=== PATIENT | female | born 1970 | race Caucasian/White ===

== ENCOUNTER → 2018-03-29 | Outpatient (CLI) | payer MEDICAID ==
[2018-03-29 13:43] LABS: INTERNATIONAL RATION (INR) 0.99; PROTHROMBIN TIME 13.6 SEC (11.4-15.4)
== END ==
LOC: LAB 13:08
PROVIDERS: ATTEND Internal Medicine Pulmonary Disease
DX: Z51.81 Encounter for therapeutic drug level monitoring (principal); Z79.01 Long term (current) use of anticoagulants
CPT/HCPCS: 36415; 85610

== ENCOUNTER 2018-04-18 14:30 | Emergency (ER) | payer OTHER, MEDICAID ==
[2018-04-18] MEDS ORDERED: ASPIRIN 81 MG TABLET, CHEWABLE PO ONE (14:59)
--- NOTE | 2018-04-18 15:31 | RADIOLOGY REPORT (SQ) ---
EXAM DESCRIPTION: CHEST SINGLE VIEW COMPLETED DATE/TIME: 04/18/2018 3:17 pm REASON FOR STUDY: cp COMPARISON: AP chest 07/22/2012 EXAM PARAMETERS: NUMBER OF VIEWS: One view. TECHNIQUE: Single frontal radiographic view of the chest acquired. RADIATION DOSE: NA LIMITATIONS: None. FINDINGS: LUNGS AND PLEURA: No acute infiltrates. No pleural effusions. No pneumothorax. MEDIASTINUM AND HILAR STRUCTURES: No masses. Contour normal. HEART AND VASCULAR STRUCTURES: Heart normal in size. Normal vasculature. BONES: No acute findings. HARDWARE: None in the chest. OTHER: Bilateral breast implants IMPRESSION: NO ACUTE RADIOGRAPHIC FINDING IN THE CHEST. TECHNICAL DOCUMENTATION: JOB ID: [id number] [employer]- All Rights Reserved Reading location - IP/workstation name: [email or web address]
--- NOTE | 2018-04-18 16:07 | ER Document Report ---
ED Cardiac - General Chief Complaint: Chest Wall Pain Stated Complaint: CHEST PAIN Time Seen by Provider: 04/18/18 15:14 Primary Care Provider: PAUL BENÍTEZ II, MD [NO LOCAL MD] - Follow up in 3-5 days TRAVEL OUTSIDE OF THE [place] IN LAST 30 DAYS: No - HPI Patient complains to provider of: Other - Right side rib pain, this is a woman with a history of factor V Leiden in the past who has been on anticoagulation for pulmonary emboli the presents from retirement for evaluation of pain along the right chest which she says began suddenly and feels similar to previous pulmonary emboli. She is currently taking warfarin and has been getting it checked intermittently. This feels very similar to that because she has been short of breath which makes it difficult for her to walk around the same frequency as she has previously. She is not take anything to try and help with it. - Related Data Allergies/Adverse Reactions: promethazine HCl [From Phenergan] Allergy (Verified 03/26/18 11:03) Past Medical History - General Information source: Patient - Social History Smoking Status: Unknown if Ever Smoked Chew tobacco use (# tins/day): No Frequency of alcohol use: None Drug Abuse: None Family History: Reviewed & Not Pertinent Patient has suicidal ideation: No Patient has homicidal ideation: No - Past Medical History Cardiac Medical History: Reports: Hx Hypertension - states took meds this am. Renal/ Medical History: Reports: Hx Kidney Stones. Denies: Hx Peritoneal Dialysis Past Surgical History: Reports: Hx Appendectomy, Hx Tonsillectomy - Immunizations Hx Diphtheria, Pertussis, Tetanus Vaccination: Yes - unknown Review of Systems - Review of Systems -: Yes All other systems reviewed and negative Physical Exam - Vital signs Vitals: Pulse Ox 100 04/18/18 14:59 - General General appearance: Appears well, Alert - HEENT Head: Normocephalic, Atraumatic Eyes: Normal Pupils: PERRL - Respiratory Respiratory status: No respiratory distress Chest status: Nontender Breath sounds: Normal Chest palpation: Normal - Cardiovascular Rhythm: Regular Heart sounds: Normal auscultation Murmur: No - Abdominal Inspection: Normal Distension: No distension Bowel sounds: Normal Tenderness: Nontender Organomegaly: No organomegaly - Back Back: Normal, Nontender - Extremities General upper extremity: Normal inspection, Nontender, Normal color, Normal ROM, Normal temperature General lower extremity: Normal inspection, Nontender, Normal color, Normal ROM, Normal temperature, Normal weight bearing. No: Flakita's sign - Neurological Neuro grossly intact: Yes Cognition: Normal Orientation: AAOx4 August Coma Scale Eye Opening: Spontaneous August Coma Scale Verbal: Oriented August Coma Scale Motor: Obeys Commands [place] Coma Scale Total: 15 Speech: Normal Motor strength normal: LUE, RUE, LLE, RLE Sensory: Normal - Psychological Associated symptoms: Normal affect, Normal mood Course - Re-evaluation Re-evalutation: This woman with a history of thromboembolic events in the past who presents for concern of pain in her right chest which feels like thromboembolic events in the past. We will obtain CTA of the chest for concern of PE. We will administer Tylenol and Motrin for pain. We will obtain cardiac markers as well plan for monitoring. Patient with a negative CT of the chest, negative troponins, unremarkable labs. I am unclear what may be the cause of her right-sided chest pain, is likely related to a musculoskeletal issue chest wall pain. She will undergo discharge with return precautions and discharged in the care of the police she is going back to retirement. - Vital Signs Vital signs: Temp Pulse Resp BP Pulse Ox 64 12 109/66 95 04/18/18 21:00 04/18/18 21:01 04/18/18 21:00 04/18/18 21:01 - Laboratory Result Diagrams: 04/18/18 16:11 04/18/18 16:11 Laboratory results interpreted by me: 04/18/18 16:11 Carbon Dioxide 32 H Creatine Kinase 22 L Discharge - Discharge Clinical Impression: Rib pain on right side Chest pain Qualifiers: Chest pain type: unspecified Qualified Code(s): R07.9 - Chest pain, unspecified Condition: Good Disposition: HOME, SELF-CARE Instructions: Anti-Inflammatory Medication ([facility]), Chest Wall Pain ([facility]) Additional Instructions: You were seen today in the emergency department for the pain in the right side of your chest. You had an evaluation including a CAT scan, blood work, and EKG. Nothing was identified as the cause of the pain in your chest. No obvious blood clot was identified. Use Motrin and Tylenol to help with the pain in your chest. You can take 1 g of Motrin every 6 hours as needed. You can take 400 mg of ibuprofen every 6 hours as needed. Return in case of worsening shortness of breath, lightheadedness, or chest pain. Referrals: PAUL BENÍTEZ II, MD [NO LOCAL MD] - Follow up in 3-5 days
[2018-04-18 16:43] LABS: ABSOLUTE EOSINOPHILS # (AUTO) 0.1 10^3/uL (0.0-0.6); ABSOLUTE LYMPHOCYTES (AUTO) 1.9 10^3/uL (0.5-4.7); ABSOLUTE MONOCYTES (AUTO) 0.4 10^3/uL (0.1-1.4); ABSOLUTE NEUT (AUTO) 2.9 10^3/uL (1.7-8.2); BASOPHILS % (AUTO) 0.8 % (0-2); EOSINOPHILS % (AUTO) 1.9 % (0-6); HEMOGLOBIN 14.1 g/dL (12.0-15.5); LYMPHOCYTES % (AUTO) 35.9 % (13-45); MEAN CORPUSCULAR HEMOGLOBIN 28.7 pg (27.0-33.4); MEAN CORPUSCULAR HGB CONC 34.3 g/dL (32.0-36.0); MEAN CORPUSCULAR VOLUME 84 fl (80-97); MONOCYTES % (AUTO) 7.2 % (3-13); PLATELET COUNT 227 10^3/uL (150-450); RED BLOOD COUNT 4.91 10^6/uL (3.72-5.28); RED CELL DISTRIBUTION WIDTH 13.8 % (11.5-14.0); SEGMENTED NEUTROPHILS % (AUTO) 54.2 % (42-78); TOTAL CELLS COUNTED % (AUTO) 100 %; WHITE BLOOD COUNT 5.4 10^3/uL (4.0-10.5)
[2018-04-18 17:16] LABS: ALANINE AMINOTRANSFERASE 24 U/L (9-52); ALBUMIN 4.6 g/dL (3.5-5.0); ALKALINE PHOSPHATASE 77 U/L (38-126); ANION GAP 7 (5-19); ASPARTATE AMINO TRANSFERASE 20 U/L (14-36); BILIRUBIN,DIRECT 0.2 mg/dL (0.0-0.4); BILIRUBIN,TOTAL 0.3 mg/dL (0.2-1.3); BLOOD UREA NITROGEN 17 mg/dL (7-20); CALCIUM 9.7 mg/dL (8.4-10.2); CARBON DIOXIDE 32 mmol/L (22-30); CHLORIDE 101 mmol/L (98-107); CREATINE KINASE 22 U/L (30-135); GLUCOSE 96 mg/dL (75-110); POTASSIUM 4.7 mmol/L (3.6-5.0); SODIUM 139.5 mmol/L (137-145); TOTAL PROTEIN 7.4 g/dL (6.3-8.2)
[2018-04-18 17:24] LABS: CREATINE KINASE MB 0.31 ng/mL (<4.55)
[2018-04-18 17:26] LABS: TROPONIN I < 0.012 ng/mL
--- NOTE | 2018-04-18 18:29 | RADIOLOGY REPORT (SQ) ---
EXAM DESCRIPTION: CTA CHEST COMPLETED DATE/TIME: 04/18/2018 6:03 pm REASON FOR STUDY: high likelihood PE RLL COMPARISON: None. TECHNIQUE: CT scan of the chest performed using helical scanning technique with dynamic intravenous contrast injection. Images reviewed with lung, soft tissue and bone windows. Reconstructed coronal and sagittal MPR images reviewed. Additional 3 dimensional post-processing performed to develop Maximal Intensity Projection images (DC P). All images stored on PACS. All CT scanners at this facility use dose modulation, iterative reconstruction, and/or weight based d osing when appropriate to reduce radiation dose to as low as reasonably achievable (ALARA). [facility]: Dose Right [facility]: CareDose [facility]: Dose Right [facility]: Teradose 4D [facility]: Silverpop CONTRAST TYPE AND DOSE: contrast/concentration: Isovue 350.00 mg/ml; Total Contrast Delivered: 66.0 ml; Total Saline Delivered: 106.0 ml Contrast bolus optimized for the pulmonary arteries. Not diagnostic for the aorta. RENAL FUNCTION: BUN 17 creatinine 0.65 RADIATION DOSE: CT Rad equipment meets quality standard of care and radiation dose reduction techniq ues were employed. CTDIvol: 14.3 - 33.1 mGy. DLP: 527 mGy-cm. . LIMITATIONS: None. FINDINGS: LUNGS AND PLEURA: No masses, infiltrates, or pneumothorax. No pleural effusions or pleura l calcifications. AORTA AND GREAT VESSELS: No aneurysm. Contrast bolus not optimized for the aorta. HEART: No pericardial effusion. No significant coronary artery calcifications. PULMONARY ARTERIES: No emboli visualized in the main pulmonary arteries or the segmental branches. HILAR AND MEDIASTINAL STRUCTURES: No identified masses or abnormal nodes. HARDWARE: None in the chest. UPPER ABDOMEN: A few scattered small hepatic cysts are present. THYROID AND OTHER SOFT TISSUES: No masses. No adenopathy. BONES: No acute or significant finding. 3D MIPS: Confirm above findings. OTHER: There are calcifications in the wall of the right internal jugular vein. IMPRESSION: 1. There is no evidence of pulmonary emboli. 2. There are calcifications in the wall of the right internal jugular vein. Is there history of thr ombosis? COMMENT: Quality ID # [id number]: Final reports with documentation of one or more dose reduction techniques (e.g., Automated exposure control, adjustment of the mA and/or kV according to patient size, use of iterative reconstruction technique) TECHNICAL DOCUMENTATION: JOB ID: [id number] [employer]- All Rights Reserved Reading location - IP/workstation name: [email or web address]
[2018-04-18] MEDS ORDERED: IBUPROFEN 600 MG TABLET PO ONE (19:10)
[2018-04-18 21:19] VITALS: BP 109/66
--- NOTE | 2018-04-18 22:57 | EKG REPORT ---
SEVERITY:- ABNORMAL ECG - SINUS RHYTHM LEFT ATRIAL ABNORMALITY : Confirmed by: Barbara Knight MD 18-Apr-2018 22:56:12
== END 2018-04-18 21:30 | disposition home or self-care (01) ==
LOC: EEVIPCON 14:30 → ER 14:30
DX: R07.81 Pleurodynia (principal); R07.9 Chest pain, unspecified; I10 Essential (primary) hypertension; Z87.442 Personal history of urinary calculi
CPT/HCPCS: 36415; 71045; 71275; 80053; 82550; 82553; 84484; 85025; 93005; 93010; 99284

== ENCOUNTER 2019-09-04 13:49 | Emergency (ER) | payer MEDICAID ==
[2019-09-04] MEDS ORDERED: LORAZEPAM INJ 2 MG/1 ML VIAL IV ONE (14:03)
--- NOTE | 2019-09-04 14:07 | ER Document Report ---
ED General <HENRIQUE BULLOCK - Last Filed: 09/09/19 21:49> - General Mode of Arrival: Medic Information source: Patient TRAVEL OUTSIDE OF THE [place] IN LAST 30 DAYS: No <FAVIAN BALDWIN - Last Filed: 09/10/19 08:35> - General Stated Complaint: INVOLUNTARY BODY MOVEMENTS Notes: 48-year-old woman presents to the emergency department with diffuse and irregular movement of her arms and legs which she relates to using IV methamphetamine yesterday. She then use heroin and ice. States that the irregular movement began after using the drugs. Patient is alert and talkative and has no speech difficulty. She was released from half-way proximately 1 week ago. She complains of feeling hot and unable to get comfortable. (FAVIAN BALDWIN) - Related Data Allergies/Adverse Reactions: promethazine HCl [From Phenergan] Allergy (Verified 03/26/18 11:03) Past Medical History - Social History Smoking Status: Unknown if Ever Smoked Family History: Reviewed & Not Pertinent - Past Medical History Cardiac Medical History: Reports: Hx Hypertension - states took meds this am. Renal/ Medical History: Reports: Hx Kidney Stones. Denies: Hx Peritoneal Dialysis Past Surgical History: Reports: Hx Appendectomy, Hx Tonsillectomy - Immunizations Hx Diphtheria, Pertussis, Tetanus Vaccination: Yes - unknown <FAVIAN BALDWIN - Last Filed: 09/10/19 08:35> Review of Systems <FAVIAN BALDWIN - Last Filed: 09/10/19 08:35> - Review of Systems Notes: Constitutional: Negative for fever. HENT: Negative for sore throat. Eyes: Negative for visual changes. Cardiovascular: Negative for chest pain. Respiratory: Negative for shortness of breath. Gastrointestinal: Negative for abdominal pain, vomiting or diarrhea. Genitourinary: Negative for dysuria. Musculoskeletal: Negative for back pain. Skin: Negative for rash. Neurological: Discoordinated movements upper and lower extremity 10 point ROS negative except as marked above and in HPI. (FAVIAN BALDWIN) Physical Exam <FAVIAN BALDWIN - Last Filed: 09/10/19 08:35> - Vital signs Vitals: Resp Pulse Ox 24 H 95 09/04/19 13:55 09/04/19 13:55 - Notes Notes: PHYSICAL EXAMINATION: Physical Exam: General: Well-nourished well-developed 78-year-old woman in moderate distress secondary to flinging the arms and legs HEENT: NC/AT, pupils equal round and reactive to light, MM moist,nares clear, oropharynx clear, airway patent Neck: supple, no adenopathy, no masses. Good range of motion Lungs: clear, no wheezing, no rales no rhonchi CVS: Regular rate and rhythm no murmur gallop or rub Abdomen: Soft, active, nontender, no masses, no hepatosplenomegaly Ext: No edema, clubbing or cyanosis. Neuro: Alert and responsive, moving all 4 extremities on command, cranial nerves intact, no focal findings Skin: + Needle tracks, neck and arm (FAVIAN BALDWIN) Course - Laboratory Result Diagrams: 09/04/19 14:02 09/04/19 14:02 <HENRIQUE BULLOCK - Last Filed: 09/09/19 21:49> - Laboratory Result Diagrams: 09/04/19 14:02 09/04/19 14:02 - EKG Interpretation by Me Rate: Tachycardia - Sinus tachycardia with a rate of 105, probable left atrial abnormality, no acute ST or T wave abnormalities seen. Borderline prolonged QT interval noted. Normal axis. <FAVIAN BALDWIN - Last Filed: 09/10/19 08:35> - Re-evaluation Re-evalutation: 09/04/19 19:50 Care of this patient was turned over to me during the course of my stay in the emergency department. Her significant abnormal movements continued. This did appear to be a tardive dyskinesia. IV Benadryl ordered. Psychosocial consult was performed, the patient wishes to follow up at [facility]. Will attempt to control her tardive dyskinesia with the Benadryl. She is stable, we will continue to monitor. 09/05/19 02:33 Patient had some improvement of tardive dyskinesia with Benadryl, had further improvement with some Cogentin. She still does have some residual movements, but she has been resting comfortably and is stable. She feels comfortable being discharged. She will follow-up as an outpatient for detox. (HENRIQUE BULLOCK) - Vital Signs Vital signs: Temp Pulse Resp BP Pulse Ox 99.1 F 21 H 100/64 97 09/05/19 10:08 09/05/19 10:08 09/05/19 10:08 09/05/19 10:08 Binge using of IV methamphetamine, IV heroin and ICE presents with bizarre movements and shaking. Patient was given the Lorazepam 2 mg. She has been resting quietly for approximately 45 minutes. Potassium was noted to be 3.0, patient is given a IV rider and oral potassium is ordered. (FAVIAN BALDWIN) - Laboratory Laboratory results interpreted by me: 09/04/19 09/04/19 09/04/19 14:02 14:02 14:02 WBC 13.1 H Hgb 11.4 L Hct 32.9 L Lymph % (Auto) 9.2 L Absolute Neuts (auto) 10.5 H Seg Neutrophils % 79.7 H Sodium 136.3 L Potassium 3.0 L* Chloride 91 L BUN 35 H Creatinine 1.41 H Est GFR ( Amer) 48 L Est GFR (MDRD) Non-Af 39 L AST 88 H Creatine Kinase 2133 H CK-MB (CK-2) Salicylates Acetaminophen 09/04/19 09/04/19 14:02 14:02 WBC Hgb Hct Lymph % (Auto) Absolute Neuts (auto) Seg Neutrophils % Sodium Potassium Chloride BUN Creatinine Est GFR ( Amer) Est GFR (MDRD) Non-Af AST Creatine Kinase CK-MB (CK-2) 20.50 H Salicylates < 1.0 L Acetaminophen < 10 L I have reviewed laboratory data and used this information for the treatment decisions regarding the patient. (FAVIAN BALDWIN) Discharge <HENRIQUE BULLOCK - Last Filed: 09/09/19 21:49> <FAVIAN BALDWIN - Last Filed: 09/10/19 08:35> - Discharge Clinical Impression: Polysubstance abuse, Hypokalemia, Abnormal movements, Tardive dyskinesia Condition: Stable Disposition: HOME, SELF-CARE Instructions: Ampetamine Abuse ([facility]), Hypokalemia ([facility]), Narcotic Abuse ([facility]) Additional Instructions: Seek outpatient help for substance abuse issues as discussed. Follow-up with your primary care provider on Saturday. You may require further intervention for the involuntary movements you are suffering at this time. Return to the emergency department with worsening or concerning symptoms of any sort.
[2019-09-04 14:17] LABS: ABSOLUTE BASOPHILS # (AUTO) 0.1 10^3/uL (0.0-0.2); ABSOLUTE LYMPHOCYTES (AUTO) 1.2 10^3/uL (0.5-4.7); ABSOLUTE MONOCYTES (AUTO) 1.3 10^3/uL (0.1-1.4); ABSOLUTE NEUT (AUTO) 10.5 10^3/uL (1.7-8.2); HEMATOCRIT 32.9 % (36.0-47.0); HEMOGLOBIN 11.4 g/dL (12.0-15.5); LYMPHOCYTES % (AUTO) 9.2 % (13-45); MEAN CORPUSCULAR HEMOGLOBIN 28.3 pg (27.0-33.4); MEAN CORPUSCULAR HGB CONC 34.6 g/dL (32.0-36.0); MEAN CORPUSCULAR VOLUME 82 fl (80-97); MONOCYTES % (AUTO) 10.1 % (3-13); PLATELET COUNT 321 10^3/uL (150-450); RED BLOOD COUNT 4.02 10^6/uL (3.72-5.28); RED CELL DISTRIBUTION WIDTH 13.9 % (11.5-14.0); SEGMENTED NEUTROPHILS % (AUTO) 79.7 % (42-78); TOTAL CELLS COUNTED % (AUTO) 100 %; WHITE BLOOD COUNT 13.1 10^3/uL (4.0-10.5)
[2019-09-04 14:42] LABS: ALBUMIN 4.5 g/dL (3.5-5.0); ALKALINE PHOSPHATASE 110 U/L (38-126); ANION GAP 17 (5-19); ASPARTATE AMINO TRANSFERASE 88 U/L (14-36); BILIRUBIN,DIRECT 0.3 mg/dL (0.0-0.4); BILIRUBIN,TOTAL 1.2 mg/dL (0.2-1.3); BLOOD UREA NITROGEN 35 mg/dL (7-20); CARBON DIOXIDE 28 mmol/L (22-30); CHLORIDE 91 mmol/L (98-107); GLUCOSE 82 mg/dL (75-110); TOTAL PROTEIN 7.8 g/dL (6.3-8.2)
[2019-09-04 14:54] LABS: ALCOHOL < 10 mg/dL (NONE DETECTED)
[2019-09-04] MEDS ORDERED: POTASSIUM CHLORIDE 20 MEQ PACKET PO ONE (16:02)
[2019-09-04] MEDS ORDERED: POTASSI CL 20 MEQ/50 ML RIDER 20 MEQ/50 ML RTUPB IV ONE (16:02)
[2019-09-04] MEDS ORDERED: POTASSIUM CHLORIDE 10 MEQ TABLET.ER PO ONE (16:02)
[2019-09-04 16:22] LABS: URINE BARBITURATES SCREEN NEGATIVE; URINE COCAINE SCREEN NEGATIVE; URINE MARIJUANA (THC) SCREEN NEGATIVE; URINE METHADONE SCREEN NEGATIVE; URINE PHENCYCLIDINE SCREEN NEGATIVE
[2019-09-04 16:23] LABS: URINE BENZODIAZEPINES SCREEN UNCONFIRMED POSITIVE
[2019-09-04 17:23] LABS: CREATINE KINASE MB 20.5 ng/mL (<4.55); TROPONIN I 0.022 ng/mL
[2019-09-04] MEDS: NORMAL SALINE 1000 ML 1,000 ML IV PRN ×2 (17:55→19:02)
[2019-09-04 18:02] LABS: ACETAMINOPHEN < 10 ug/mL (10-30); SALICYLATE < 1.0 mg/dL (2.0-20.0)
--- NOTE | 2019-09-04 18:40 | PSYCHOLOGICAL NOTE ---
Psych Note - Psych Note Date seen by psych provider: 09/04/19 Time seen by psych provider: 18:30 Psych Note: Reason for consult binder sorter attempted to engage patient in evaluation however patient is currently being medicated with Ativan. Patient is unable to wake up. Behavior health team will re-attempt at a later time. Detox referral information including local providers, detox facilities and mobile crisis contact information will be put in patient's chart in case patient is discharged prior to behavioral health team returning tomorrow morning.
--- NOTE | 2019-09-04 19:04 | EKG REPORT ---
SEVERITY:- ABNORMAL ECG - SINUS TACHYCARDIA PROBABLE LEFT ATRIAL ABNORMALITY INFERIOR INFARCT, AGE INDETERMINATE BORDERLINE PROLONGED QT INTERVAL : Confirmed by: Barbara Knight MD 04-Sep-2019 19:02:48
[2019-09-04] MEDS ORDERED: DIPHENHYDRAMINE HCL 50 MG/ML VIAL IV ONE (19:49)
[2019-09-04] MEDS ORDERED: BENZTROPINE MESYLATE INJ 2 MG/2 ML AMPULE IV ONE (22:24)
[2019-09-05 10:26] VITALS: BP 100/64
== END 2019-09-05 10:27 | disposition home or self-care (01) ==
LOC: ER 13:49 → EEVIPCON 13:49 → ER 09-05 10:27
DX: G24.01 Drug induced subacute dyskinesia (principal); T50.905A Adverse effect of unspecified drugs, medicaments and biological substances, initial encounter; F19.10 Other psychoactive substance abuse, uncomplicated; E87.6 Hypokalemia; R00.0 Tachycardia, unspecified; I10 Essential (primary) hypertension; Z88.8 Allergy status to other drugs, medicaments and biological substances
CPT/HCPCS: 93005; 99284; 96361; 51701; 96375; 96365; 96366; 36415; 82553; 80307 ×4; 82550; 85025; 80053; 84484; 93010; J0515; J1200; J2060; J3480; J7030